=== PATIENT | female | born 2000 | race Caucasian/White ===

== ENCOUNTER 2018-10-27 15:08 | Emergency (ER) | payer BC ==
[~2018-10-27] VITALS: Ht 160 cm; Wt 48.7 kg
[~2018-10-27 15:08] MED LIST: AMOX1TAB10 PO; IBUP800T48 PO
[2018-10-27 15:13] VITALS: BP 113/75; PULSE 107; RESP 16; Ht 160 cm; Wt 48.7 kg
== END 2018-10-27 15:32 | disposition home or self-care (01) ==
LOC: E/R 15:08
DX: K04.7 Periapical abscess without sinus (principal)
CPT/HCPCS: 99283